=== PATIENT | male | born 1970 | race Caucasian/White ===

== ENCOUNTER → 2019-10-25 | Outpatient (CLI) | payer OTHER ==
--- NOTE | 2019-10-26 11:17 | RADIOLOGY REPORT (SQ) ---
EXAM DESCRIPTION: MRI LT UPPER JOINT WITHOUT COMPLETED DATE/TIME: 10/25/2019 7:28 pm REASON FOR STUDY: M25.512 PAIN IN LEFT SHOULDER M25.512 PAIN IN LEFT SHOULDER COMPARISON: None. TECHNIQUE: Left shoulder images acquired and stored on PACS. Multiplanar imaging to include fat sens itive sequences such as T1, water sensitive sequences such as FST2/STIR, cartilage sensitive sequence s such as FSPD/gradient-echo sequences. LIMITATIONS: None. FINDINGS: BONE MARROW AND CORTEX: No worrisome bone lesions or marrow replacement. No occult fractur es. JOINT OR BURSAL EFFUSION: No significant joint or bursal fluid. No suggestion of loose bodies. GLENO-HUMERAL ARTICULATION: Normal articulation. No subluxation. No cystic change. No osteophytes or cartilage loss. ACROMION AND AC JOINT: Mild AC overgrowth without subacromial compromise. ROTATOR CUFF AND INTERVAL: Thickened appearance, predominantly tendinosis. Mild areas of insertional intrasubstance tear are likely. No high-grade partial or full-thickness tear detected, however. No significant fatty atrophy. LABRUM AND BICEPS LABRAL COMPLEX: No overt tear of the biceps anchor or biceps tendon. REMAINDER OF LABRUM AND IGHL : Posterosuperior and posterior labrum likely torn, heterogeneous with increased T2 signal within. PERIARTICULAR AND ADJACENT SOFT TISSUES: No masses or abnormal nodes. OTHER: No other significant finding. IMPRESSION: 1. Cuff tendinosis. No full-thickness tear. No atrophy. 2. Suspect posterosuperior/posterior labral tear. Biceps anchor looks relatively intact as does the biceps tendon. TECHNICAL DOCUMENTATION: JOB ID: [id number] 2010 [employer]- All Rights Reserved Reading location - IP/workstation name: [email or web address]
== END ==
LOC: RAD 17:35
PROVIDERS: ATTEND Specialist/Technologist Athletic Trainer
DX: M75.112 Incomplete rotator cuff tear or rupture of left shoulder, not specified as traumatic (principal); M25.512 Pain in left shoulder